=== PATIENT | female | born 1955 | race Caucasian/White ===

== ENCOUNTER → 2019-03-02 | Outpatient (CLI) | payer MEDICARE, OTHER | END | disposition home or self-care (01) | LOC: CFH 09:29 | PROVIDERS: ATTEND Nurse Practitioner Family | DX: M89.9 Disorder of bone, unspecified (principal); Z78.0 Asymptomatic menopausal state | CPT/HCPCS: 77080 ==

== ENCOUNTER → 2019-04-05 | Outpatient (CLI) | payer MEDICARE, OTHER | END | disposition home or self-care (01) | LOC: CFH 13:25 | PROVIDERS: ATTEND Family Medicine | DX: N28.1 Cyst of kidney, acquired (principal); N88.8 Other specified noninflammatory disorders of cervix uteri; N63.11 Unspecified lump in the right breast, upper outer quadrant; R10.30 Lower abdominal pain, unspecified; R19.09 Other intra-abdominal and pelvic swelling, mass and lump | CPT/HCPCS: 76641; 76830 ==

== ENCOUNTER → 2019-04-23 | Outpatient (CLI) | payer MEDICARE, OTHER | END | disposition home or self-care (01) | LOC: CFH 07:18 | PROVIDERS: ATTEND Family Medicine | DX: N63.11 Unspecified lump in the right breast, upper outer quadrant (principal) | CPT/HCPCS: 76642; 77066; G0279 ==

== ENCOUNTER 2020-06-18 14:36 | Outpatient (CLI) | payer MEDICARE, OTHER ==
[~2020-06-18 14:36] MED LIST: NONE PER PT
[2020-06-19] MEDS ORDERED: HYDR-1067 PO (09:35)
[2020-06-19] MEDS ORDERED: ONDA4TAB7 PO (09:35)
== END 2020-06-18 23:59 | disposition home or self-care (01) ==
LOC: RAD 14:36
PROVIDERS: ATTEND Surgery
DX: C50.411 Malignant neoplasm of upper-outer quadrant of right female breast (principal)
CPT/HCPCS: 38792; A9541

== ENCOUNTER 2020-06-19 05:43 | Day surgery (SDC) | payer MEDICARE, OTHER ==
[~2020-06-19] VITALS: Ht 170.2 cm; Wt 109.1 kg
[2020-06-19] MEDS ORDERED: CHLORHEXIDINE 15 ML UDC ONE (06:12)
[2020-06-19 06:27] VITALS: BP 133/82
[2020-06-19] MEDS ORDERED: CHLORHEXIDINE 15 ML UDC PO ONE (06:30)
[2020-06-19] MEDS ORDERED: LACTATED RINGERS 1,000 ML IV SCH (06:30)
[2020-06-19] MEDS ORDERED: ISOSULFAN BLUE 10 MG/ML, 5ML IV ONE (07:04)
[2020-06-19] MEDS ORDERED: BUPIVACAINE/PF 0.5% ONE (07:04)
[2020-06-19] MEDS ORDERED: EPINEPHRINE 1 MG/ML, 1ML ONE (07:05)
[2020-06-19] MEDS ORDERED: MIDAZOLAM 1 MG/ML, 2ML ONE (07:17)
[2020-06-19] MEDS ORDERED: FENTANYL PF 250 MCG/5ML ONE (07:17)
[2020-06-19] MEDS ORDERED: PROPOFOL 10 MG/ML, 20ML ONE (07:18)
[2020-06-19] MEDS ORDERED: ROCURONIUM 10MG/ML,5ML ONE (07:19)
[2020-06-19] MEDS ORDERED: LIDOCAINE-MPF 2% ,5ML ONE (07:19)
[2020-06-19] MEDS ORDERED: ONDANSETRON 2MG/ML, 2ML IVPush PRN (07:30)
[2020-06-19] MEDS ORDERED: MEPERIDINE/PF 25MG/0.5ML IVPush PRN (07:30)
[2020-06-19] MEDS ORDERED: ACETAMINOPHEN 500 MG TABLET PO ONE (07:30)
[2020-06-19] MEDS ORDERED: ONDANSETRON ODT 8 MG PO ONE (07:30)
[2020-06-19] MEDS ORDERED: FENTANYL PF 100 MCG/2ML IV PRN (07:30)
[2020-06-19] MEDS ORDERED: DIPHENHYDRAMINE 50 MG/ML, 1ML IVPush PRN (07:30)
[2020-06-19] MEDS ORDERED: DIAZEPAM 5 MG/ML, 2ML IVPush PRN (07:30)
[2020-06-19] MEDS ORDERED: HYDROmorphone 1 MG/ML, 1ML INJ IVPush PRN (07:30)
[2020-06-19] MEDS ORDERED: PROMETHAZINE 25 MG/ML, 1ML IVPush PRN (07:30)
[2020-06-19] MEDS ORDERED: OXYcodone 5 MG/5 ML ORAL.SOL UDC PO PRN (07:30)
[2020-06-19] MEDS ORDERED: NEOSTIGMINE 1 MG/ML, 10ML ONE (07:44)
[2020-06-19] MEDS ORDERED: GLYCOPYRROLATE 0.2MG/1ML, 5ML ONE (07:44)
[2020-06-19] MEDS ORDERED: CEFAZOLIN 1,000 MG ONE ×2 (07:58)
[2020-06-19] MEDS ORDERED: DEXAMETHASONE 4 MG/ML, 1ML ONE ×2 (07:58)
[2020-06-19] MEDS ORDERED: HYDR-1067 PO (09:35)
[2020-06-19] MEDS ORDERED: ONDA4TAB7 PO (09:35)
[2020-06-19] MEDS ORDERED: OXYcodone 5 MG/5 ML ORAL.SOL UDC ONE (10:39)
[2020-06-19] MEDS ORDERED: KETOROLAC 30 MG/1 ML ONE (10:39)
[2020-06-19] MEDS ORDERED: FENTANYL PF 100 MCG/2ML ONE (10:39)
[2020-06-19] MEDS ORDERED: PROMETHAZINE 25 MG/ML, 1ML ONE (10:47)
[2020-06-19] MEDS ORDERED: KETOROLAC 30 MG/1 ML IVPush ONE (11:00)
== END 2020-06-19 13:45 | disposition home or self-care (01) ==
LOC: OUT 05:43 → EDSTATUS 07:30 → OUT 13:45
PROVIDERS: ATTEND Surgery
DX: C50.411 Malignant neoplasm of upper-outer quadrant of right female breast (principal); Z79.899 Other long term (current) drug therapy; Z72.89 Other problems related to lifestyle; Z98.890 Other specified postprocedural states; Z80.3 Family history of malignant neoplasm of breast; Z20.822 Contact with and (suspected) exposure to COVID-19
CPT/HCPCS: 19301; 38525; 88307; 88329; 88333; 93005; J0171; J0690; J1100; J1885; J2250; J2550; J2704; J2710; J3010; J7120; Q0162; U0003

== ENCOUNTER 2020-08-06 07:08 | Outpatient (CLI) | payer MEDICARE, OTHER ==
[~2020-08-06 07:08] MED LIST changes: +HYDR-2214 PO; +ONDA4TAB7 PO
== END 2020-08-06 23:59 | disposition home or self-care (01) ==
LOC: ROC 07:08
PROVIDERS: ATTEND Radiology Radiation Oncology
DX: C50.411 Malignant neoplasm of upper-outer quadrant of right female breast (principal); Z79.899 Other long term (current) drug therapy; Z72.89 Other problems related to lifestyle; Z98.890 Other specified postprocedural states
CPT/HCPCS: G0463